=== PATIENT | female | born 1975 | race Caucasian/White ===

== ENCOUNTER → 2019-09-13 15:37 | Outpatient (CLI) | payer BC, SELFPAY ==
--- NOTE | 2019-09-13 15:37 | MM_ITS ---
PROCEDURE: MM DIG SCREENING MAMM BI W/CAD Digital Breast Tomosynthesis Included CLINICAL INDICATION: Routine Sc Mamm/Baseline There is no personal or family history of breast cancer. COMPARISON: None, this is baseline screening exam TECHNIQUE: Standard CC and MLO images and 3D Tomosynthesis was obtained. R2 CAD reviewed. FINDINGS: Mild fibroglandular densities are seen in the subareolar regions of both breasts. The remainder of the breasts are composed primarily of fat. There is no suspicious lesion in either breast and no suspicious microcalcifications. IMPRESSION: Fibrofatty parenchyma with no suspicious lesions seen BI-RAD Category: 1 Negative FOLLOW-UP: 1YR 1 Year Follow-up (A letter has been sent to the patient regarding results of the study.) Dictated by: Dr. Chevy Rae MD 09/14/2019 13:[address] Chevy Rae MD in [place] 09/14/2019 13:39
== END ==
PROVIDERS: PCP Nurse Practitioner Family; Visit Provider Nurse Practitioner Family
DX: Z12.31 Encounter for screening mammogram for malignant neoplasm of breast (principal)
CPT/HCPCS: 77063; 77067